=== PATIENT | female | born 1995 | race Caucasian/White ===

== ENCOUNTER 2020-01-19 21:38 | Emergency (ER) | payer OTHER ==
[~2020-01-19] VITALS: Ht 167.6 cm; Wt 137.9 kg
[2020-01-19 21:47] VITALS: Ht 167.6 cm; Wt 137.9 kg
[2020-01-19 22:42] VITALS: BP 171/75
== END 2020-01-19 22:42 | disposition home or self-care (01) ==
LOC: ED 21:38
DX: S81.012A Laceration without foreign body, left knee, initial encounter (principal); L08.9 Local infection of the skin and subcutaneous tissue, unspecified; X58.XXXA Exposure to other specified factors, initial encounter; Y93.01 Activity, walking, marching and hiking; Y92.89 Other specified places as the place of occurrence of the external cause; Y99.8 Other external cause status
CPT/HCPCS: 90715